=== PATIENT | male | born 2000 | race Caucasian/White ===

== ENCOUNTER 2025-04-22 05:06 | Emergency (ER) | payer BC, SELFPAY ==
[2025-04-22 05:12] VITALS: BP 142/74; PULSE 89; TEMP 36.9; O2SAT 98; BMI 23.1
--- NOTE | 2025-04-22 05:29 | ED_ITS ---
HPI HPI - General Adult General Chief complaint: Dental/Oral Stated complaint: PIECE OF CANDY IN BACK OF THROAT Time Seen by Provider: 04/22/25 05:25 Source: patient Mode of arrival: walk-in Limitations: no limitations History of Present Illness HPI narrative: This 25-year-old male states he was eating a piece of candy last night and when he swallowed it he feels that he was stuck in his proximal esophagus. He feels a foreign body sensation whenever he eats. He has been able to eat and drink and keep the food down but continues to have a foreign body sensation which has still not resolved. Related Data Home Medications ?Medication ?Instructions ?Recorded ?Confirmed No Known Home Medications 04/22/2506/09 Allergies Allergy/AdvReac Type Severity Reaction Status Date / Time aripiprazole (From [facility]) Allergy Rash Verified 04/22/25 05:17 PFSH PFSH Social History Little interest or pleasure in doing things: not at all Feeling down, depressed, or hopeless: not at all Exam Constitutional Vital Signs, click to edit/add: Last Vital Signs Temp 98.4 F 04/22/25 05:12 Pulse 89 04/22/25 05:12 Resp 20 04/22/25 05:12 BP 142/74 H 04/22/25 05:12 Pulse Ox 98 04/22/25 05:12 O2 Del Method Room Air 04/22/25 05:12 Course Vital Signs Vital signs: Vital Signs Temperature 98.4 F 04/22/25 05:12 Pulse Rate 89 04/22/25 05:12 Respiratory Rate 20 04/22/25 05:12 Blood Pressure 142/74 H 04/22/25 05:12 Pulse Oximetry 98 04/22/25 05:12 Oxygen Delivery Method Room Air 04/22/25 05:12 Temperature 98.4 F 04/22/25 05:12 Pulse Rate 89 04/22/25 05:12 Respiratory Rate 20 04/22/25 05:12 Blood Pressure 142/74 H 04/22/25 05:12 Pulse Oximetry 98 04/22/25 05:12 Oxygen Delivery Method Room Air 04/22/25 05:12 Medical Decision Making Lab Data Labs: Lab Results 04/22/25 Range/Units 05:40 WBC 7.2 (4.0-11.0) 10^3/uL RBC 4.35 L (4.70-6.10) 10^6/uL Hgb 12.9 L (14.0-18.0) g/dL Hct 35.9 L (42.0-54.0) % MCV 82.5 (80.0-94.0) fL MCH 29.7 (25.9-34.0) pg MCHC 35.9 H (29.9-35.2) g/dL RDW 11.9 (11.0-15.0) % Plt Count 214 (150-450) 10^3/uL MPV 10.6 (9.5-13.5) fL Neut % (Auto) 68.6 (43.0-75.0) % Lymph % (Auto) 22.6 (20.5-60.0) % [place] % (Auto) 8.0 (1.7-12.0) % Eos % (Auto) 0.3 L (0.9-7.0) % Baso % (Auto) 0.4 (0.2-2.0) % Neut # (Auto) 4.9 (1.4-6.5) 10^3/uL Lymph # (Auto) 1.6 (1.2-3.8) 10^3/uL [place] # (Auto) 0.6 (0.3-0.8) 10^3/uL Eos # (Auto) 0.0 (0.0-0.7) 10^3/uL Baso # (Auto) 0.0 (0.0-0.1) 10^3/uL Abs Immat Gran (auto) 0.01 (0.00-0.03) 10^3/uL Imm/Tot Granulo (auto) 0.1 (0.0-0.5) % Sodium 140 (136-145) mmol/L Potassium 3.5 (3.5-5.1) mmol/L Chloride 103 (98-107) mmol/L Carbon Dioxide 26.0 (21.0-32.0) mmol/L Anion Gap 14.5 BUN 10.0 (7.0-18.0) mg/dL Creatinine 0.73 (0.70-1.30) mg/dL Est GFR ( Amer) >60 (>=60 mL/min/1.73m^2) Est GFR (Non-Af Amer) >60 (>=60 mL/min/1.73m^2) BUN/Creatinine Ratio 13.7 Glucose 95 (74-106) mg/dL Calcium 9.0 (8.5-10.1) mg/dL Total Bilirubin 0.8 (0.2-1.0) mg/dL AST 10 L (15-37) U/L ALT 17 (16-63) U/L Alkaline Phosphatase 63 (46-116) U/L Total Protein 7.4 (6.4-8.2) g/dL Albumin 4.1 (3.4-5.0) g/dL Globulin 3.3 g/dL Albumin/Globulin Ratio 1.2 Discharge Plan Discharge Chief Complaint: Dental/Oral Prescriptions / Home Meds: No Action No Known Home Medications Print Language: Malagasy Referrals: Physician,Non-Staff, [Primary Care Provider] - 1 week
[2025-04-22 05:49] LABS: Basophils Percent Auto 0.4 % (0.2-2.0); Eosinophils Percent Auto 0.3 % (0.9-7.0); Hematocrit 35.9 % (42.0-54.0); Hemoglobin 12.9 g/dL (14.0-18.0); Immature Granulocytes Abs Auto 0.01 10^3/uL (0.00-0.03); Immature Granulocytes Pct Auto 0.1 % (0.0-0.5); Lymphocytes Absolute Auto 1.6 10^3/uL (1.2-3.8); Lymphocytes Percent Auto 22.6 % (20.5-60.0); Mean Corpuscular HGB Conc 35.9 g/dL (29.9-35.2); Mean Corpuscular Hemoglobin 29.7 pg (25.9-34.0); Mean Corpuscular Volume 82.5 fL (80.0-94.0); Mean Platelet Volume 10.6 fL (9.5-13.5); Monocytes Absolute Auto 0.6 10^3/uL (0.3-0.8); Neutrophils Absolute Auto 4.9 10^3/uL (1.4-6.5); Neutrophils Percent Auto 68.6 % (43.0-75.0); Platelet Count 214 10^3/uL (150-450); Red Blood Count 4.35 10^6/uL (4.70-6.10); Red Cell Distribution Width 11.9 % (11.0-15.0); White Blood Count 7.2 10^3/uL (4.0-11.0)
[2025-04-22] MEDS: 0.9 % SODIUM CHLORIDE 1,000 ML 500 ML IV (05:58)
[2025-04-22 06:00] LABS: Alanine Aminotransferase 17 U/L (16-63); Albumin Globulin Ratio 1.2; Albumin Level 4.1 g/dL (3.4-5.0); Alkaline Phosphatase 63 U/L (46-116); Anion Gap 14.5; Aspartate Amino Transferase 10 U/L (15-37); BUN Creatinine Ratio 13.7; Bilirubin Total 0.8 mg/dL (0.2-1.0); Chloride 103 mmol/L (98-107); Estimated GFR (African America >60 (>=60 mL/min/1.73m^2); Estimated GFR (Non-African Ame >60 (>=60 mL/min/1.73m^2); Globulin 3.3 g/dL; Glucose 95 mg/dL (74-106); Potassium 3.5 mmol/L (3.5-5.1); Sodium 140 mmol/L (136-145); Total Protein 7.4 g/dL (6.4-8.2)
--- NOTE | 2025-04-22 07:51 | ED.GENADUL1 ---
HPI HPI - General Adult General Chief complaint: Dental/Oral Stated complaint: PIECE OF CANDY IN BACK OF THROAT Time Seen by Provider: 04/22/25 05:25 Source: patient Mode of arrival: walk-in Limitations: no limitations History of Present Illness HPI narrative: 25-year-old male presented to the emergency department and was initially seen by Dr. Saucedo and signed out to me after discussing the case with him thoroughly. Please see his full history and physical exam. Related Data Home Medications ?Medication ?Instructions ?Recorded ?Confirmed No Known Home Medications 04/22/25 04/22/25 Allergies Allergy/AdvReac Type Severity Reaction Status Date / Time aripiprazole (From Abilify) Allergy Rash Verified 04/22/25 05:17 PFSH PFSH Social History Little interest or pleasure in doing things: not at all Feeling down, depressed, or hopeless: not at all Exam Constitutional Vital Signs, click to edit/add: Last Vital Signs Temp 98.4 F 04/22/25 05:12 Pulse 89 04/22/25 05:12 Resp 20 04/22/25 05:12 BP 142/74 H 04/22/25 05:12 Pulse Ox 98 04/22/25 05:12 O2 Del Method Room Air 04/22/25 05:12 Course Vital Signs Vital signs: Vital Signs Temperature 98.4 F 04/22/25 05:12 Pulse Rate 89 04/22/25 05:12 Respiratory Rate 20 04/22/25 05:12 Blood Pressure 142/74 H 04/22/25 05:12 Pulse Oximetry 98 04/22/25 05:12 Oxygen Delivery Method Room Air 04/22/25 05:12 Temperature 98.4 F 04/22/25 05:12 Pulse Rate 89 04/22/25 05:12 Respiratory Rate 20 04/22/25 05:12 Blood Pressure 142/74 H 04/22/25 05:12 Pulse Oximetry 98 04/22/25 05:12 Oxygen Delivery Method Room Air 04/22/25 05:12 Medical Decision Making [facility] Narrative Medical decision making narrative: CT scan per radiologist shows no foreign body or other abnormal finding. The patient was referred to ENT for follow-up if symptoms persist. Treatment diagnosis and follow-up were discussed with the patient. Differential Diagnosis Differential Diagnosis: Foreign body, foreign body sensation, abscess Lab Data Lab results reviewed: Yes I reviewed the patient's lab results Labs: Lab Results 04/22/25 Range/Units 05:40 WBC 7.2 (4.0-11.0) 10^3/uL RBC 4.35 L (4.70-6.10) 10^6/uL Hgb 12.9 L (14.0-18.0) g/dL Hct 35.9 L (42.0-54.0) % MCV 82.5 (80.0-94.0) fL MCH 29.7 (25.9-34.0) pg MCHC 35.9 H (29.9-35.2) g/dL RDW 11.9 (11.0-15.0) % Plt Count 214 (150-450) 10^3/uL MPV 10.6 (9.5-13.5) fL Neut % (Auto) 68.6 (43.0-75.0) % Lymph % (Auto) 22.6 (20.5-60.0) % Coffee % (Auto) 8.0 (1.7-12.0) % Eos % (Auto) 0.3 L (0.9-7.0) % Baso % (Auto) 0.4 (0.2-2.0) % Neut # (Auto) 4.9 (1.4-6.5) 10^3/uL Lymph # (Auto) 1.6 (1.2-3.8) 10^3/uL Coffee # (Auto) 0.6 (0.3-0.8) 10^3/uL Eos # (Auto) 0.0 (0.0-0.7) 10^3/uL Baso # (Auto) 0.0 (0.0-0.1) 10^3/uL Abs Immat Gran (auto) 0.01 (0.00-0.03) 10^3/uL Imm/Tot Granulo (auto) 0.1 (0.0-0.5) % Sodium 140 (136-145) mmol/L Potassium 3.5 (3.5-5.1) mmol/L Chloride 103 (98-107) mmol/L Carbon Dioxide 26.0 (21.0-32.0) mmol/L Anion Gap 14.5 BUN 10.0 (7.0-18.0) mg/dL Creatinine 0.73 (0.70-1.30) mg/dL Est GFR ( Amer) >60 (>=60 mL/min/1.73m^2) Est GFR (Non-Af Amer) >60 (>=60 mL/min/1.73m^2) BUN/Creatinine Ratio 13.7 Glucose 95 (74-106) mg/dL Calcium 9.0 (8.5-10.1) mg/dL Total Bilirubin 0.8 (0.2-1.0) mg/dL AST 10 L (15-37) U/L ALT 17 (16-63) U/L Alkaline Phosphatase 63 (46-116) U/L Total Protein 7.4 (6.4-8.2) g/dL Albumin 4.1 (3.4-5.0) g/dL Globulin 3.3 g/dL Albumin/Globulin Ratio 1.[address] neck: Radiologist's impression: No definite foreign body, no evidence of airway compromise. The prevertebral soft tissues were noted to be normal by the radiologist. Discharge Plan Discharge Chief Complaint: Dental/Oral Clinical Impression: Foreign body sensation, throat Patient Disposition: Home, Self-Care Time of Disposition Decision: 07:50 Condition: Good Mode of Transportation: Private Vehicle Prescriptions / Home Meds: No Action No Known Home Medications Print Language: Albanian Instructions: Neck Pain (ED) Referrals: Melinda Bishop MD [Physician, Ear, Nose, Throat] Physician,Non-Staff, MD [Primary Care Provider] - 1 week
== END 2025-04-22 08:04 | disposition home or self-care (01) ==
PROVIDERS: Emergency Medicine; Emergency Provider Emergency Medicine
DX: R09.A2 Foreign body sensation, throat (principal)
CPT/HCPCS: 36415; 70491; 80053; 85025; 99284; Q9967

== ENCOUNTER 2025-04-24 09:02 | Emergency (ER) | payer BC, SELFPAY ==
[2025-04-24 09:15] VITALS: BP 123/68; PULSE 65; TEMP 36.7; O2SAT 98; BMI 21.7
== END 2025-04-24 10:50 | disposition left against medical advice (07) ==
PROVIDERS: Emergency Provider Emergency Medicine
DX: R13.10 Dysphagia, unspecified (principal); Z53.21 Procedure and treatment not carried out due to patient leaving prior to being seen by health care provider
CPT/HCPCS: 99281

== ENCOUNTER 2025-04-24 12:05 | Emergency (ER) | payer BC, SELFPAY ==
[2025-04-24] VITALS (16 sets, daily range): BP systolic 158; BP diastolic 94; PULSE 94; TEMP 36.6; O2SAT 96–99; BMI 21.7
[2025-04-24] MEDS: lidocaine HCL 15 ML, MAG HYDROX/ALUMINUM HYD/SIMETH 30 ML, HYOSCYAMINE SULFATE 0.25 MG PO (16:06)
[2025-04-24] MEDS: LORAZEPAM 1 MG TABLET PO (16:17)
[2025-04-24 16:34] LABS: Internal Control Within Normal Limits; Strep A Antigen Screen Negative
[2025-04-24] MEDS: DEXAMETHASONE SOD PHOS 10 MG/ML VIAL PO (17:19)
--- NOTE | 2025-04-24 17:23 | ED.GENADUL1 ---
Documented by User: Catrina Castey 04/24/25 17:27 HPI HPI - General Adult General Chief complaint: Dental/Oral Stated complaint: DIFFICULTY SWALLOWING Time Seen by Provider: 04/24/25 15:55 Source: patient and family Mode of arrival: walk-in Limitations: no limitations History of Present Illness HPI narrative: 25-year-old male presents here to the emergency room chief complaint of difficulty swallowing due to pain. Patient was seen and evaluated on April 22 after swallowing a hard piece of candy which scratched his throat. He states since Thursday 2 days ago he has had increased difficulty with swallowing. He did attempt to call ENT specialist today who referred him back to the hospital. Patient did have a CT scan at his previous visit which showed no acute abnormalities. Patient is very anxious. He is not febrile. He states when he lays back he feels like he cannot catch his breath. He does not note a history of anxiety or stress in the past. Patient does appear anxious has bedside family members who are also anxious. He is speaking full sentences he shows no signs of distress or drolling Related Data Home Medications ?Medication ?Instructions ?Recorded ?Confirmed No Known Home Medications 04/22/25 04/24/25 Allergies Allergy/AdvReac Type Severity Reaction Status Date / Time aripiprazole (From Abilify) Allergy Rash Verified 04/24/25 12:34 Review of Systems ROS Status of ROS 10 or more systems reviewed and unremarkable except as noted in history and below PFSH PFSH Social History Little interest or pleasure in doing things: not at all Feeling down, depressed, or hopeless: not at all Exam Narrative Exam Narrative: All Systems are negative except as noted/marked.All systems reviewed and otherwise negative Nurses note and vital signs reviewed and patient is not hypoxic. General: The patient appears well and in no apparent distress. Patient is resting comfortably on cart. Skin: Warm, dry, no pallor noted. There is no rash noted. Head: Normocephalic, atraumatic Eye: Normal conjunctiva, no drainage, EOMI. PERRL Ears, Nose, Mouth, and Throat: oral mucosa is moist. Nares patent. Mouth without vesicles. Ear canals patent. Tm's without Erythema Cardiovascular: Regular Rate and Rhythm Respiratory: Patient is in no distress, no accessory muscle use, lungs are clear to auscultation, no wheezing, rales or rhonchi Musculoskeletal: The patient has no evidence of calf tenderness, no pitting edema, symmetrical pulses noted bilaterally Neurological: A&O x4, normal speech Psychiatric: Cooperative Constitutional Vital Signs, click to edit/add: Last Vital Signs Temp 97.8 F 04/24/25 12:34 Pulse 94 H 04/24/25 12:34 Resp 18 04/24/25 12:34 BP 158/94 H 04/24/25 12:36 Pulse Ox 97 04/24/25 15:10 O2 Del Method Room Air 04/24/25 12:34 Course Vital Signs Vital signs: Vital Signs Temperature 97.8 F 04/24/25 12:34 Pulse Rate 94 H 04/24/25 12:34 Respiratory Rate 18 04/24/25 12:34 Blood Pressure 158/94 H 04/24/25 12:34 Pulse Oximetry 99 04/24/25 12:34 Oxygen Delivery Method Room Air 04/24/25 12:34 Temperature 97.8 F 04/24/25 12:34 Pulse Rate 94 H 04/24/25 12:34 Respiratory Rate 18 04/24/25 12:34 Blood Pressure 158/94 H 04/24/25 12:36 Pulse Oximetry 97 04/24/25 15:10 Oxygen Delivery Method Room Air 04/24/25 12:34 Medical Decision Making MDM Narrative Medical decision making narrative: 25-year-old male presents here to the emergency room chief complaint of difficulty swallowing due to pain. Patient was seen and evaluated on April 22 after swallowing a hard piece of candy which scratched his throat. He states since Thursday 2 days ago he has had increased difficulty with swallowing. He did attempt to call ENT specialist today who referred him back to the hospital. Patient did have a CT scan at his previous visit which showed no acute abnormalities. Patient is very anxious. He is not febrile. He states when he lays back he feels like he cannot catch his breath. He does not note a history of anxiety or stress in the past. Patient does appear anxious has bedside family members who are also anxious. He is speaking full sentences he shows no signs of distress or drolling Seen here 2 days ago and continued to have difficulty swallowing after scratching his throat with what he says was a hard piece of candy. X-rays repeated today. Patient does appear anxious. He was medicated here today with GI cocktail Decadron and 1 Ativan. He did calm down and felt somewhat relieved. Patient is afebrile. He shows no signs of dysphagia and he is able to swallow. He does sense difficulty doing so due to pain. I explained to patient the reasons of wrist pain. He is going to follow-up with ENT. Reasons to return to the emergency room were discussed. Due to patient's anxiety and stress about this he was given a small prescription of Ativan 0.5 mg x 10 pills. Family members at bedside agree with plan of care. Differential Diagnosis Differential Diagnosis: Pharyngitis, dysphagia, strep throat Medical Records Medical records reviewed: Yes I reviewed the patient's medical records Lab Data Lab results reviewed: Yes I reviewed the patient's lab results Labs: Lab Results 04/24/25 Range/Units 16:15 Streptococcus Screen Negative Imaging Data Chest x-ray: My impression: I read negative by radiology as well as soft tissue neck Discharge Plan Discharge Chief Complaint: Dental/Oral Clinical Impression: Foreign body sensation, throat, Pharyngitis Patient Disposition: Home, Self-Care Time of Disposition Decision: 17:04 Condition: Good Prescriptions / Home Meds: No Action No Known Home Medications Print Language: Chinese Instructions: Pharyngitis (ED) Referrals: Physician,Non-Staff, [Primary Care Provider] - 1 week CARMELINA MONTES DO [Physician, Ear, Nose, Throat] - 1 week Discharge Date/Time: 04/24/25 17:26 Documented by User: Con Alvarez MD 04/24/25 18:39 HPI HPI - General Adult General Chief complaint: Dental/Oral Stated complaint: DIFFICULTY SWALLOWING Time Seen by Provider: 04/24/25 15:55 Related Data Home Medications ?Medication ?Instructions ?Recorded ?Confirmed No Known Home Medications 04/22/25 04/24/25 Allergies Allergy/AdvReac Type Severity Reaction Status Date / Time aripiprazole (From Abilify) Allergy Rash Verified 04/24/25 12:34 PFSH PFSH Social History Little interest or pleasure in doing things: not at all Feeling down, depressed, or hopeless: not at all Exam Constitutional Vital Signs, click to edit/add: Last Vital Signs Temp 97.8 F 04/24/25 12:34 Pulse 94 H 04/24/25 12:34 Resp 18 04/24/25 12:34 BP 158/94 H 04/24/25 12:36 Pulse Ox 97 04/24/25 15:10 O2 Del Method Room Air 04/24/25 12:34 Course Vital Signs Vital signs: Vital Signs Temperature 97.8 F 04/24/25 12:34 Pulse Rate 94 H 04/24/25 12:34 Respiratory Rate 18 04/24/25 12:34 Blood Pressure 158/94 H 04/24/25 12:34 Pulse Oximetry 99 04/24/25 12:34 Oxygen Delivery Method Room Air 04/24/25 12:34 Temperature 97.8 F 04/24/25 12:34 Pulse Rate 94 H 04/24/25 12:34 Respiratory Rate 18 04/24/25 12:34 Blood Pressure 158/94 H 04/24/25 12:36 Pulse Oximetry 97 04/24/25 15:10 Oxygen Delivery Method Room Air 04/24/25 12:34 Medical Decision Making MDM Narrative Medical decision making narrative: 25-year-old male presents here to the emergency room chief complaint of difficulty swallowing due to pain. Patient was seen and evaluated on April 22 after swallowing a hard piece of candy which scratched his throat. He states since Thursday 2 days ago he has had increased difficulty with swallowing. He did attempt to call ENT specialist today who referred him back to the hospital. Patient did have a CT scan at his previous visit which showed no acute abnormalities. Patient is very anxious. He is not febrile. He states when he lays back he feels like he cannot catch his breath. He does not note a history of anxiety or stress in the past. Patient does appear anxious has bedside family members who are also anxious. He is speaking full sentences he shows no signs of distress or drolling Seen here 2 days ago and continued to have difficulty swallowing after scratching his throat with what he says was a hard piece of candy. X-rays repeated today. Patient does appear anxious. He was medicated here today with GI cocktail Decadron and 1 Ativan. He did calm down and felt somewhat relieved. Patient is afebrile. He shows no signs of dysphagia and he is able to swallow. He does sense difficulty doing so due to pain. I explained to patient the reasons of wrist pain. He is going to follow-up with ENT. Reasons to return to the emergency room were discussed. Due to patient's anxiety and stress about this he was given a small prescription of Ativan 0.5 mg x 10 pills. Family members at bedside agree with plan of care. I, Dr Alvarez, have reviewed the above progress note and course of action in the ER; agree with the above. I have personally gone over history and physical, and discussed disposition and treatment plan with the PA. Patient was drinking water and ice chips when he was placed into room 2. There is no immediate airway concern, patient was in the ER with significant amount of time secondary to ER volume, I was the only provider today and so was able to get additional help approximately 4 PM. Multiple blame less apologies for given to patient and family. When patient was first here and left without being seen, I did not see the patient at that time, he was in the waiting room. Lab Data Labs: Lab Results 04/24/25 Range/Units 16:15 Streptococcus Screen Negative Discharge Plan Discharge Chief Complaint: Dental/Oral Clinical Impression: Foreign body sensation, throat, Pharyngitis Patient Disposition: Home, Self-Care Time of Disposition Decision: 17:04 Condition: Good Prescriptions / Home Meds: No Action No Known Home Medications Print Language: Chinese Instructions: Pharyngitis (ED) Referrals: Physician,Non-Staff, MD [Primary Care Provider] - 1 week CARMELINA MONTES DO [Physician, Ear, Nose, Throat] - 1 week Discharge Date/Time: 04/24/25 17:26
== END 2025-04-24 17:26 | disposition home or self-care (01) ==
PROVIDERS: Physician Assistant; Emergency Provider Emergency Medicine
DX: J02.9 Acute pharyngitis, unspecified (principal); R09.A2 Foreign body sensation, throat; Z53.21 Procedure and treatment not carried out due to patient leaving prior to being seen by health care provider
CPT/HCPCS: 70360; 71046; 87070; 87880; 99281; 99285; J1100